=== PATIENT | male | born 1965 | race Two or more races ===

== ENCOUNTER 2019-02-20 15:18 | Inpatient (IN) | payer MEDICAID, OTHER ==
[~2019-02-20] VITALS: Ht 162.6 cm; Wt 60.8 kg
[2019-02-20] MEDS ORDERED: ATOR10TA69 PO (16:11)
[2019-02-20] MEDS ORDERED: METF-416 PO (16:11)
[2019-02-20] MEDS ORDERED: OMEP20TA2 PO (16:11)
[2019-02-20] MEDS ORDERED: PANT40TA4 PO (16:11)
[2019-02-20] MEDS ORDERED: SODIUM CHLORIDE 0.9% 1,000 ML IV ONE (16:26)
[2019-02-20] MEDS ORDERED: ONDANSETRON HCL 4MG/2ML INJ IV STA (16:26)
[2019-02-20 17:19] LABS: BASOPHILS % 0.2 % (0.0-2.0); HEMATOCRIT. 36.8 % (42.0-52.0); HEMOGLOBIN. 12.9 g/dL (14.0-18.0); LYMPHOCYTES % 8.3 % (20.0-50.0); MEAN CORPUSCULAR HEMOGLOBIN 31.7 pg (28.0-32.0); MEAN CORPUSCULAR VOLUME 90.7 fL (80.0-94.0); MEAN PLATELET VOLUME 7.5 fl (7.4-10.4); MONOCYTES % 2.1 % (2.0-8.0); NEUTROPHILS % 89.4 % (40.0-76.0); PLATELET 221 x1000/uL (130-400); RED BLOOD CELL COUNT 4.06 mill/uL (4.7-6.1); RED CELL DISTRIBUTION WIDTH 12.8 % (11.6-14.6)
[2019-02-20 17:27] LABS: PROTHROMBIN TIME 10.7 sec (9.6-11.0)
[2019-02-20 17:33] LABS: CHLORIDE 98 mEq/L (98-107)
[2019-02-20 17:36] LABS: CLARITY URINE CLEAR (CLEAR); COLOR URINE YELLOW (YELLOW); KETONES URINE 1+ (NEGATIVE); LEUKOCYTE ESTERASE URINE NEGATIVE (NEGATIVE); NITRITE URINE NEGATIVE (NEGATIVE); OCCULT BLOOD URINE NEGATIVE (NEGATIVE); PH URINE 7.5 (4.5-8.0); PROTEIN URINE TRACE (NEGATIVE); SPECIFIC GRAVITY URINE 1.022 (1.005-1.030)
[2019-02-20 17:39] LABS: ETHANOL BLOOD < 10 mg/dL
[2019-02-20 17:47] LABS: *BARBITURATES SCREEN URINE NEGATIVE (NEGATIVE); *BENZODIAZEPINES SCREEN URINE NEGATIVE (NEGATIVE); *COCAINE SCREEN URINE NEGATIVE (NEGATIVE); METHADONE URINE SCREEN NEGATIVE (NEGATIVE); OPIATES URINE SCREEN NEGATIVE (NEGATIVE)
[2019-02-20 17:48] LABS: *AMPHETAMINES SCREEN URINE NEGATIVE (NEGATIVE); CANNABINOID URINE SCREEN PRESUMTIVE POSITIVE (NEGATIVE); PHENCYCLIDINE URINE SCREEN NEGATIVE (NEGATIVE)
[2019-02-20] MEDS ORDERED: DEXTROSE 50% WATER 50ML SYRINGE IV PRN ×3 (19:15→23:30)
[2019-02-20] MEDS ORDERED: ZOLPIDEM TARTRATE 5MG TABLET PO PRN (21:00)
[2019-02-20] MEDS: ONDANSETRON HCL 4MG/2ML INJ IV PRN (21:16)
[2019-02-20 22:30] VITALS: BP 150/84
[2019-02-20 23:00] VITALS: BP 128/76
[2019-02-20] MEDS ORDERED: BLOOD SUGAR DIAGNOSTIC STRIP TEST SCH (23:00)
[2019-02-20] MEDS ORDERED: INSULIN LISPRO 100 UNITS/ML SUBCUT SCH (23:00)
[2019-02-21] VITALS: BP 123/74
[2019-02-21] MEDS: PANTOPRAZOLE SODIUM 40 MG/VIAL IV SCH ×3 (00:09→21:01)
[2019-02-21] MEDS: SODIUM CHLORIDE 0.9% 1,000 ML IV SCH ×3 (00:10→21:01)
[2019-02-21 04:00] VITALS: BP 134/90
[2019-02-21 05:47] LABS: CHLORIDE 99 mEq/L (98-107)
[2019-02-21 06:03] LABS: BASOPHILS % 0.3 % (0.0-2.0); HEMATOCRIT. 35.1 % (42.0-52.0); HEMOGLOBIN. 12.4 g/dL (14.0-18.0); LYMPHOCYTES % 14.2 % (20.0-50.0); MEAN CORPUSCULAR HEMOGLOBIN 31.9 pg (28.0-32.0); MEAN CORPUSCULAR VOLUME 90.6 fL (80.0-94.0); MEAN PLATELET VOLUME 7.8 fl (7.4-10.4); MONOCYTES % 5.6 % (2.0-8.0); NEUTROPHILS % 79.9 % (40.0-76.0); PLATELET 215 x1000/uL (130-400); RED BLOOD CELL COUNT 3.88 mill/uL (4.7-6.1); RED CELL DISTRIBUTION WIDTH 12.7 % (11.6-14.6)
[2019-02-21] MEDS: BLOOD SUGAR DIAGNOSTIC STRIP TEST SCH ×4 (06:29→20:41)
[2019-02-21] MEDS: ONDANSETRON HCL 4MG/2ML INJ IV PRN (06:29)
[2019-02-21] MEDS ORDERED: BLOOD SUGAR DIAGNOSTIC STRIP TEST SCH ×2 (07:40)
[2019-02-21] MEDS: INSULIN LISPRO 100 UNITS/ML SUBCUT SCH ×4 (07:45→20:41)
[2019-02-21 08:00] VITALS: BP 135/82
[2019-02-21] MEDS ORDERED: INSULIN LISPRO 100 UNITS/ML SUBCUT SCH ×2 (08:10)
[2019-02-21] MEDS: ACETAMINOPHEN 325MG TABLET PO PRN ×2 (09:27→18:51)
[2019-02-21 12:00] VITALS: BP 106/70
[2019-02-21] MEDS ORDERED: POTASSIUM CHLORIDE 20MEQ TABLET SR PO NR (12:00)
[2019-02-21 16:12] VITALS: BP 142/85
[2019-02-21 20:00] VITALS: BP 139/78
[2019-02-22] VITALS: BP 140/82
[2019-02-22] MEDS: ACETAMINOPHEN 325MG TABLET PO PRN (00:04)
[2019-02-22] MEDS: ONDANSETRON HCL 4MG/2ML INJ IV PRN (00:08)
[2019-02-22 04:00] VITALS: BP 132/79
[2019-02-22] MEDS: METOCLOPRAMIDE HCL 10MG/2ML VIAL IV PRN (04:00)
[2019-02-22] MEDS: MORPHINE SULFATE 2 MG/ML CPJ (NOT FOR IM USE) IV PRN (04:01)
[2019-02-22] MEDS: BLOOD SUGAR DIAGNOSTIC STRIP TEST SCH ×4 (06:29→21:06)
[2019-02-22] MEDS: INSULIN LISPRO 100 UNITS/ML SUBCUT SCH ×4 (06:29→21:00)
[2019-02-22 06:55] LABS: INR 1.1
[2019-02-22 06:58] LABS: BASOPHILS % 0.2 % (0.0-2.0); EOSINOPHILS % 0.4 % (0.0-5.0); HEMATOCRIT. 35.4 % (42.0-52.0); HEMOGLOBIN. 12.7 g/dL (14.0-18.0); LYMPHOCYTES % 19.4 % (20.0-50.0); MEAN CORPUSCULAR VOLUME 89.3 fL (80.0-94.0); MEAN PLATELET VOLUME 7.9 fl (7.4-10.4); MONOCYTES % 6.5 % (2.0-8.0); NEUTROPHILS % 73.5 % (40.0-76.0); PLATELET 216 x1000/uL (130-400); RED BLOOD CELL COUNT 3.96 mill/uL (4.7-6.1); RED CELL DISTRIBUTION WIDTH 12.6 % (11.6-14.6)
[2019-02-22 08:00] VITALS: BP 153/88
[2019-02-22 08:21] LABS: CHLORIDE 97 mEq/L (98-107)
[2019-02-22] MEDS: PANTOPRAZOLE SODIUM 40 MG/VIAL IV SCH ×2 (09:00→21:01)
[2019-02-22] MEDS: SODIUM CHLORIDE 0.9% 1,000 ML IV SCH ×2 (09:01→17:56)
[2019-02-22] MEDS ORDERED: BACTERIOSTATIC SODIUM CHLORIDE 0.9% 30ML VIAL IJ ONE (09:28)
[2019-02-22] MEDS ORDERED: SIMETHICONE 40 MG/0.6 ML 30ML ONE (10:46)
[2019-02-22] MEDS ORDERED: MIDAZOLAM HCL 5 MG/5 ML VIAL ONE (11:47)
[2019-02-22] MEDS ORDERED: FENTANYL CITRATE/PF 50MCG/ML 2ML VIAL ONE (11:47)
[2019-02-22] MEDS ORDERED: FENTANYL CITRATE/PF 50MCG/ML 2ML VIAL IV ONE (11:56)
[2019-02-22] MEDS ORDERED: MIDAZOLAM HCL 5 MG/5 ML VIAL IV ONE (11:57)
[2019-02-22 16:11] VITALS: BP 156/87
[2019-02-22 20:00] VITALS: BP 134/83
[2019-02-23] VITALS: BP 135/80
[2019-02-23] MEDS: SODIUM CHLORIDE 0.9% 1,000 ML IV SCH ×2 (00:04→11:45)
[2019-02-23] MEDS: MORPHINE SULFATE 2 MG/ML CPJ (NOT FOR IM USE) IV PRN (00:14)
[2019-02-23 04:00] VITALS: BP 130/82
[2019-02-23] MEDS: METOCLOPRAMIDE HCL 10MG/2ML VIAL IV PRN (06:14)
[2019-02-23 07:36] LABS: BASOPHILS % 0.3 % (0.0-2.0); EOSINOPHILS % 1.2 % (0.0-5.0); HEMATOCRIT. 36.6 % (42.0-52.0); HEMOGLOBIN. 12.9 g/dL (14.0-18.0); MEAN CORPUSCULAR HEMOGLOBIN 31.6 pg (28.0-32.0); MEAN CORPUSCULAR VOLUME 89.8 fL (80.0-94.0); MEAN PLATELET VOLUME 7.7 fl (7.4-10.4); MONOCYTES % 8.9 % (2.0-8.0); NEUTROPHILS % 60.6 % (40.0-76.0); PLATELET 205 x1000/uL (130-400); RED BLOOD CELL COUNT 4.07 mill/uL (4.7-6.1); RED CELL DISTRIBUTION WIDTH 12.6 % (11.6-14.6)
[2019-02-23 07:49] LABS: CHLORIDE 97 mEq/L (98-107)
[2019-02-23 08:00] VITALS: BP 142/89
[2019-02-23] MEDS: INSULIN LISPRO 100 UNITS/ML SUBCUT SCH ×2 (08:08→13:47)
[2019-02-23] MEDS: BLOOD SUGAR DIAGNOSTIC STRIP TEST SCH ×2 (08:08→12:40)
[2019-02-23] MEDS: PANTOPRAZOLE SODIUM 40 MG/VIAL IV SCH (09:26)
[2019-02-23 12:00] VITALS: BP 143/83
[2019-02-23 14:24] VITALS: BP 143/83
== END 2019-02-23 15:33 | disposition home or self-care (01) | DRG 241 ==
LOC: ER 15:58 → 7WST 18:50 → ENRESERV 21:01
PROVIDERS: ADMIT Internal Medicine; ATTEND Internal Medicine
PROC: 0DB68ZX Excision of Stomach, Via Natural or Artificial Opening Endoscopic, Diagnostic (ICD-10-PCS; principal; 2019-02-22)
DX: K29.01 Acute gastritis with bleeding (principal); E11.42 Type 2 diabetes mellitus with diabetic polyneuropathy; K22.11 Ulcer of esophagus with bleeding; E87.1 Hypo-osmolality and hyponatremia; K31.84 Gastroparesis; E11.65 Type 2 diabetes mellitus with hyperglycemia; E11.43 Type 2 diabetes mellitus with diabetic autonomic (poly)neuropathy; D64.9 Anemia, unspecified; F12.90 Cannabis use, unspecified, uncomplicated; F17.210 Nicotine dependence, cigarettes, uncomplicated; K21.9 Gastro-esophageal reflux disease without esophagitis; Z79.84 Long term (current) use of oral hypoglycemic drugs; Z79.899 Other long term (current) drug therapy; Z71.6 Tobacco abuse counseling
CPT/HCPCS: 36415; 71045; 76700; 80048; 80305; 80320; 81003; 82962; 83036; 88305; 88312; 88313; 93005; 93970; 99285; C9113; J1815; J2250; J2270; J2405; J2765; J3010; J3490; J7030; G0480

== ENCOUNTER 2021-04-12 17:23 | Inpatient (IN) | payer MEDICAID ==
[~2021-04-12] VITALS: Ht 162.6 cm; Wt 72.6 kg
[~2021-04-12 17:23] MED LIST: ATOR10TA69 PO; METF-416 PO; OMEP20TA2 PO; PANT40TA51 PO
[2021-04-12] MEDS ORDERED: IBUPROFEN 600MG TABLET PO STA (17:42)
[2021-04-12] MEDS ORDERED: ACETAMINOPHEN 325MG TABLET PO STA (20:49)
[2021-04-12] MEDS ORDERED: VANCOMYCIN 1 G PREMIX 200 ML IV ONE (21:00)
[2021-04-12] MEDS ORDERED: SODIUM CHLORIDE 0.9% 1000ML BAG (SEPSIS BOLUS) IV ONE (21:00)
[2021-04-12] MEDS ORDERED: PIPERACILLIN/TAZ 3.375G PREMIX 50 ML IV ONE (21:00)
[2021-04-12 21:50] LABS: BASOPHILS % 0.4 % (0.0-2.0); EOSINOPHILS % 1.2 % (0.0-5.0); HEMATOCRIT. 33.1 % (42.0-52.0); HEMOGLOBIN. 11.5 g/dL (14.0-18.0); LYMPHOCYTES % 19.7 % (20.0-50.0); MEAN CORPUSCULAR HEMOGLOBIN 32.4 pg (28.0-32.0); MEAN CORPUSCULAR VOLUME 93.3 fL (80.0-94.0); MEAN PLATELET VOLUME 7.5 fl (7.4-10.4); MONOCYTES % 10.1 % (2.0-8.0); NEUTROPHILS % 68.6 % (40.0-76.0); PLATELET 225 x1000/uL (130-400); RED BLOOD CELL COUNT 3.54 mill/uL (4.7-6.1); RED CELL DISTRIBUTION WIDTH 13.1 % (11.6-14.6)
[2021-04-12 21:52] LABS: CHLORIDE 98 mEq/L (98-107)
[2021-04-12] MEDS: CLINDAMYCIN HCL 150MG CAPSULE PO SCH (22:17)
[2021-04-12] MEDS ORDERED: CLONIDINE 0.1MG TABLET PO PRN (23:00)
[2021-04-12] MEDS ORDERED: VANCOMYCIN 1 G PREMIX 200 ML IV SCH (23:00)
[2021-04-12] MEDS ORDERED: PIPERACILLIN/TAZ 3.375G PREMIX 50 ML IV SCH (23:00)
[2021-04-12] MEDS ORDERED: DEXTROSE 50% WATER 50ML SYRINGE IV PRN (23:00)
[2021-04-12] MEDS ORDERED: ACETAMINOPHEN 325MG TABLET PO PRN ×2 (23:00)
[2021-04-12] MEDS ORDERED: ENOXAPARIN 40MG/0.4ML SYR SUBCUT SCH (23:00)
[2021-04-12] MEDS ORDERED: ONDANSETRON HCL 4MG/2ML INJ IV PRN (23:00)
[2021-04-12] MEDS ORDERED: VANCOMYCIN 500 MG PREMIX 100 ML IV NR (23:59)
[2021-04-13] MEDS ORDERED: MORPHINE SULFATE 4 MG/ML CPJ (NOT FOR IM USE) IV ONE (00:45)
[2021-04-13 01:35] LABS: CLARITY URINE CLEAR (CLEAR); COLOR URINE YELLOW (YELLOW); KETONES URINE NEGATIVE (NEGATIVE); LEUKOCYTE ESTERASE URINE NEGATIVE (NEGATIVE); NITRITE URINE NEGATIVE (NEGATIVE); OCCULT BLOOD URINE NEGATIVE (NEGATIVE); PH URINE 6.5 (4.5-8.0); PROTEIN URINE NEGATIVE (NEGATIVE); SPECIFIC GRAVITY URINE 1.017 (1.005-1.030)
[2021-04-13] MEDS ORDERED: SODIUM CHLORIDE 0.9% INJ 3ML FLUSH IVF SCH (06:00)
[2021-04-13] MEDS ORDERED: PIPERACILLIN/TAZOBACTAM 3.375G in DEXT 5% WATER 50ML IV SCH (06:00)
[2021-04-13] MEDS: CLINDAMYCIN HCL 150MG CAPSULE PO SCH (06:12)
[2021-04-13] MEDS ORDERED: PANTOPRAZOLE 40MG DR TABLET PO SCH (07:50)
[2021-04-13] MEDS ORDERED: VANCOMYCIN 750 MG PREMIX 150 ML IV SCH ×2 (08:00→13:00)
[2021-04-13] MEDS ORDERED: INSULIN LISPRO 100 UNITS/ML SUBCUT SCH (08:20)
[2021-04-13 08:30] VITALS: BP 156/88
[2021-04-13] MEDS ORDERED: BLOOD SUGAR DIAGNOSTIC STRIP TEST SCH (09:00)
[2021-04-13] MEDS ORDERED: CLIN300C12 PO (16:02)
== END 2021-04-13 12:45 | disposition left against medical advice (07) | DRG 383 ==
LOC: ER 17:23 → 6EST 21:50 → EDBEDREQ 22:04 → ENRESERV 04-13 08:11
PROVIDERS: ADMIT Internal Medicine; ATTEND Internal Medicine
DX: L03.114 Cellulitis of left upper limb (principal); E11.9 Type 2 diabetes mellitus without complications; K21.9 Gastro-esophageal reflux disease without esophagitis; R23.8 Other skin changes; X58.XXXA Exposure to other specified factors, initial encounter; S61.238A Puncture wound without foreign body of other finger without damage to nail, initial encounter; Z79.84 Long term (current) use of oral hypoglycemic drugs; Z79.899 Other long term (current) drug therapy; Y93.89 Activity, other specified; Y92.89 Other specified places as the place of occurrence of the external cause; Y99.8 Other external cause status
CPT/HCPCS: 36415; 73130; 80053; 81003; 82962; 83605; 85025; 85651; 86140; 93005; 99285; J1650; J2270; J2405; J2543; J3370; J7030; J7060

== ENCOUNTER 2021-04-13 14:30 | Emergency (ER) | payer MEDICAID ==
[~2021-04-13] VITALS: Ht 162.6 cm; Wt 73.0 kg
[2021-04-13] MEDS ORDERED: CLINDAMYCIN HCL 150MG CAPSULE PO ONE (16:00)
[2021-04-13] MEDS ORDERED: CLIN300C12 PO (16:02)
[2021-04-13 16:33] VITALS: BP 119/66
== END 2021-04-13 16:42 | disposition home or self-care (01) ==
LOC: ER 14:32
DX: L03.012 Cellulitis of left finger (principal); E11.9 Type 2 diabetes mellitus without complications; Z98.890 Other specified postprocedural states; Z87.891 Personal history of nicotine dependence; Z79.899 Other long term (current) drug therapy
CPT/HCPCS: 99283